=== PATIENT | male | born 1950 | race Caucasian/White ===

== ENCOUNTER 2019-07-02 07:20 | Day surgery (SDC) | payer MEDICARE, OTHER, SELFPAY ==
[2019-07-02 07:42] VITALS: BP 138/73; PULSE 73; RESP 14; TEMP 36.6; O2SAT 100; BMI 25.7
--- NOTE | 2019-07-02 07:58 | PCM.HP.STD ---
Problem List (1) Screening for intestinal cancer Status: Acute History of Present Illness Date of Admission: 07/02/19 The patient is a 68 year old M presents for screening colonoscopy today. Patient has never had a previous examination. Patient denies chest pain or shortness of breath. There is no up bright red blood per rectum or melena. No abdominal pain. Otherwise enjoys good health. Past Medical History Allergies codeine Allergy (Verified 07/02/19 07:41) Nausea shellfish derived Allergy (Verified 07/02/19 07:41) Nausea Home Medications: Ambulatory Orders Medication Instructions Recorded Aspirin E.C. [Ecotrin] 81 mg PO DAILY@0800 06/30/19 Glimepiride 2 mg PO DAILY 06/30/19 Lisinopril [Prinivil] 10 mg PO DAILY 06/30/19 Metformin HCl 1,000 mg PO BID 06/30/19 Metoprolol Tartrate [Lopressor 50 mg PO BID 06/30/19 (Beta Apollo)] Simvastatin [Zocor] 40 mg PO QHS 06/30/19 Smoking Status: Never smoker Tobacco Use: Non-smoker Review of Systems HEENT: Denies: Difficulty Swallowing Cardiovascular: Denies: Chest Pain Gastrointestinal: Denies: Abdominal Pain, Melena Endocrine: Denies: Change in Body Habitus VTE Information - Inpt Only VTE Present on Admission: No Patient Problems: Active and Suspected Problems Screening for intestinal cancer (Acute) - Physical Exam Vitals/I&O's: Vital Signs Temp Pulse Resp BP Pulse Ox 97.9 F 73 14 138/73 H 100 07/02/19 07:42 07/02/19 07:42 07/02/19 07:42 07/02/19 07:42 07/02/19 07:42 Weight: 154 lb 12.232 oz Body Mass Index (BMI) 25.7 General: Alert, Oriented x3, Cooperative, No apparent distress HEENT: Atraumatic Lungs: Clear to auscultation, Normal air movement Cardiovascular: Regular rate, Regular Rhythm Abdomen: Bowel Sounds Present, Soft, Non Tender Psych/Mental Status: Normal Affect Assessment/Plan All Active Problems Screening for intestinal cancer (Acute) I recommended the patient is screening colonoscopy with possible biopsy or polypectomy is indicated. The patient has had an opportunity to ask and have questions answered. Patient presents via our open access program today. We will proceed as noted. Alexandru Beltran M.D., F.A.C.S.
[2019-07-02 08:01] LABS: Bedside Glucose 110 mg/dL (70-110)
[2019-07-02] MEDS: Lactated Ringers 1,000 ML 100 ML IV (08:05)
[2019-07-02 08:51] VITALS: BP 138/73; BP 87/61; PULSE 88; RESP 18; TEMP 36.6; O2SAT 95
[2019-07-02 08:55] VITALS: BP 138/73; BP 98/52; PULSE 67; RESP 18; O2SAT 92
[2019-07-02 09:00] VITALS: BP 101/57; BP 138/73; PULSE 92; RESP 18; O2SAT 94
[2019-07-02 09:05] VITALS: BP 109/55; BP 138/73; PULSE 69; RESP 18; TEMP 36.4; O2SAT 95
[2019-07-02 09:40] VITALS: BP 138/73
--- NOTE | 2019-07-05 14:18 | OP.COLON_ITS ---
Patient Name: Armando Jeffery Procedure Date: 07/02/2019 8:31 AM Date of : 1950 Age: 68 Procedure: Colonoscopy Indications: Screening for colorectal malignant neoplasm Providers: Alexandru Beltran MD Referring MD: Gian Menjivar Medicines: See the Anesthesia note for documentation of the administered medications Patient Profile: Last Colonoscopy: none. The patient's first colonoscopy is today. Complications: No immediate complications. Procedure: Pre-Anesthesia Assessment: - Prior to the procedure, a History and Physical was performed, and patient medications and allergies were reviewed. The patient's tolerance of previous anesthesia was also reviewed. The risks and benefits of the procedure and the sedation options and risks were discussed with the patient. All questions were answered, and informed consent was obtained. Prior Anticoagulants: The patient has taken no previous anticoagulant or antiplatelet agents. ASA Grade Assessment: II - A patient with mild systemic disease. After reviewing the risks and benefits, the patient was deemed in satisfactory condition to undergo the procedure. After I obtained informed consent, the scope was passed under direct vision. Throughout the procedure, the patient's blood pressure, pulse, and oxygen saturations were monitored continuously. The Colonoscope was introduced through the anus and advanced to the cecum, identified by appendiceal orifice and ileocecal valve. The colonoscopy was somewhat difficult due to multiple diverticula in the colon. The patient tolerated the procedure well. The quality of the bowel preparation was good. Scope In: 8:37:56 AM Scope Withdrawal Time 0 hours 6 minutes 31 seconds Scope Out: 8:48:54 AM Total Procedure Duration Time 0 hours 10 minutes 58 seconds Findings: The digital rectal exam findings include non-thrombosed external hemorrhoids, non-thrombosed internal hemorrhoids and internal hemorrhoids that prolapse with straining, but spontaneously regress to the resting position (Grade II). Pertinent negatives include no palpable rectal lesions. Multiple diverticula were found in the entire colon. The exam was otherwise without abnormality. Impression: - Non-thrombosed external hemorrhoids, non-thrombosed internal hemorrhoids and internal hemorrhoids that prolapse with straining, but spontaneously regress to the resting position (Grade II) found on digital rectal exam. - Diverticulosis in the entire examined colon. - The examination was otherwise normal. - No specimens collected. Recommendation: - Discharge patient to home. - Resume previous diet. - Continue present medications. - Repeat colonoscopy in 10 years for screening purposes. Procedure Code(s): --- Professional --- 89729, Colonoscopy, flexible; diagnostic, including collection of specimen(s) by brushing or washing, when performed (separate procedure) Diagnosis Code(s): --- Professional --- Z12.11, Encounter for screening for malignant neoplasm of colon K64.1, Second degree hemorrhoids K64.4, Residual hemorrhoidal skin tags K57.30, Diverticulosis of large intestine without perforation or abscess without bleeding CPT copyright 2017 [employer]. All rights reserved. The codes documented in this report are preliminary and upon machine preservative filler review may be revised to meet current compliance requirements. Alexandru Beltran MD 07/02/2019 8:53:00 AM This report has been signed electronically. Number of Addenda: 0 Note Initiated On: 07/02/2019 8:31 AM
--- NOTE | 2019-07-05 14:18 | OP.CCLET_ITS ---
07/05/2019 Gian Menjivar Re : Colonoscopy procedure for Armando Jeffery Dear [place] This procedure was performed on Tuesday, July 02, 2019. My impressions and recommendations are as follows: Impressions : - Non-thrombosed external hemorrhoids, non-thrombosed internal hemorrhoids and internal hemorrhoids that prolapse with straining, but spontaneously regress to the resting position (Grade II) found on digital rectal exam. - Diverticulosis in the entire examined colon. - The examination was otherwise normal. - No specimens collected. Recommendations : - Discharge patient to home. - Resume previous diet. - Continue present medications. - Repeat colonoscopy in 10 years for screening purposes. My findings are described in the full procedure note, which is enclosed. If I can be of further assistance, please feel free to contact me at Doctor phone number(s): Work: . Sincerely, Alexandru Beltran MD 07/02/2019 8:53:00 AM This report has been signed electronically.
== END 2019-07-02 09:41 | disposition home or self-care (01) ==
LOC: EN 07:22 → AC 07:25 → ACINP 10:35
PROVIDERS: Visit Provider Surgery
PROC: 0DJD8ZZ Inspection of Lower Intestinal Tract, Via Natural or Artificial Opening Endoscopic (ICD-10-PCS; CPT 45378; principal; 2019-07-02 08:25)
DX: Z12.11 Encounter for screening for malignant neoplasm of colon (principal); K64.1 Second degree hemorrhoids; K64.4 Residual hemorrhoidal skin tags; K57.30 Diverticulosis of large intestine without perforation or abscess without bleeding; I10 Essential (primary) hypertension; Z79.84 Long term (current) use of oral hypoglycemic drugs; Z79.899 Other long term (current) drug therapy
CPT/HCPCS: G0121; 82962; J7120

== ENCOUNTER → 2023-11-07 | Outpatient (CLI) | payer MEDICARE, OTHER, SELFPAY ==
[2023-11-07 12:37] LABS: Absolute Lymphocyte Count 1.83 X10^3/uL (0.83-4.51); Absolute Neutrophil Count 4.1 X10^3/uL (2.0-7.7); Basophil# 0.05 X10^3/uL; Basophil% 0.7 % (0-1); Eosinophil# 0.27 X10^3/uL; Hematocrit 43.5 % (40-54); Hemoglobin 14.4 g/dL (13.0-16.5); Lymphocyte # 1.83 X10^3/ul (0.83-4.51); Lymphocyte % 27.3 % (19-41); Mean Corp Hgb Conc 33.1 g/dL (32-36); Mean Corpuscular Hgb 30.7 pg (27.0-32.0); Mean Corpuscular Volume 92.8 fL (80-94); Mean Platelet Vol. 9.8 fl (6.2-12.0); NRBC Flagged by Analyzer 0 % (0-5); Neutrophil # 4.13 X10^3/uL (2.7-7.7); Neutrophil % 61.7 % (47-70); Platelet Count 270 K/mm3 (150-450); RBC Distribution Width CV 13.8 % (11.6-14.6); RBC Distribution Width SD 46.9 fl (35.1-43.9); Red Blood Count 4.69 M/mm3 (4.6-6.2); White Blood Count 6.7 K/mm3 (4.4-11.0)
[2023-11-07 12:50] LABS: ALB/GLOB Ratio 1.3 RATIO (0.9-2.4); AST(SGOT) 24 U/L (15-37); Alanine Aminotransfer ALT/SGPT 24 U/L (16-61); Alkaline Phosphatase 44 U/L (45-117); Anion Gap 6 (5-15); BUN 19 mg/dL (7-18); BUN/Creat Ratio 13.1 RATIO (10-20); Calcium,Total 9.2 mg/dL (8.5-10.1); Chloride 107 mmol/L (98-107); Cholesterol 110 mg/dL (200); Creatinine, Serum 1.45 mg/dL (0.70-1.30); EST Glomerular Filtration Rate 50 mL/min (>60); Est Glom Filt Rate - Afr Amer 61 mL/min (>60); Globulin 3.1 g/dL (2.2-4.2); Glucose 92 mg/dL (74-106); High Density Lipoprotein 34 mg/dL; PSA,Total - Annual Screen 3.82 ng/mL (0.00-4.00); Potassium 5.2 mmol/L (3.5-5.1); Protein, Total 7.1 g/dL (6.4-8.2); Sodium Level 137 mmol/L (136-145); Triglycerides 99 mg/dL; Very Low Density Lipoprotein 20 mg/dL (5-40)
[2023-11-07 15:35] LABS: Vitamin B12 566 pg/mL (211-911)
== END | disposition home or self-care (01) ==
LOC: BFHLAB 09:47
PROVIDERS: PCP Nurse Practitioner Family; Referring Provider Nurse Practitioner Family; Visit Provider Nurse Practitioner Family
DX: I10 Essential (primary) hypertension (principal); E78.5 Hyperlipidemia, unspecified; Z12.5 Encounter for screening for malignant neoplasm of prostate; E53.8 Deficiency of other specified B group vitamins
CPT/HCPCS: 36415; 80053; 80061; 82607; 84153; 85025; G0103

== ENCOUNTER → 2025-05-02 | Outpatient (CLI) | payer MEDICARE, OTHER, SELFPAY ==
[2025-05-02 12:36] LABS: Hematocrit 42.4 % (40-54); Hemoglobin 14.4 g/dL (13.0-16.5); Immature Granulocytes Count 0.060 X10^3/uL (0.0-0.0); Mean Corp Hgb Conc 34.0 g/dL (32-36); Mean Corpuscular Volume 91.4 fL (80-94); Mean Platelet Vol. 9.6 fl (6.2-12.0); NRBC Flagged by Analyzer 0 % (0-5); Platelet Count 281 K/mm3 (150-450); RBC Distribution Width CV 13.7 % (11.6-14.6); RBC Distribution Width SD 46.3 fl (35.1-43.9); Red Blood Count 4.64 M/mm3 (4.6-6.2); White Blood Count 8.3 K/mm3 (4.4-11.0)
[2025-05-02 13:30] LABS: AST(SGOT) 25 U/L (<=37); Alanine Aminotransfer ALT/SGPT 16 U/L (<=46); Albumin, Serum 4.3 g/dL (3.4-4.8); Alkaline Phosphatase 48 U/L (40-129); Anion Gap 13 (5-15); BUN 19 mg/dL (4-19); BUN/Creat Ratio 13.6 RATIO (10-20); Calcium,Total 9.5 mg/dL (7.6-11.0); Carbon Dioxide 23.3 mmol/L (21.0-32.0); Chloride 95 mmol/L (98-108); Cholesterol 104 mg/dL (<=200); Globulin 2.6 g/dL (2.2-4.2); Glucose 83 mg/dL (70-99); Low Density Lipoprotein Calc. 56 mg/dL; Potassium 4.7 mmol/L (3.3-5.1); Triglycerides 69 mg/dL; Very Low Density Lipoprotein 14 mg/dL (5-40); Vitamin B12 723 pg/mL (180-914); cholesterol:hdl ratio screen 3.13
[2025-05-05 13:07] LABS: PSA,Total - Annual Screen 3.41 ng/mL (0.02-4.00)
== END | disposition home or self-care (01) ==
LOC: BFHLAB 09:25
PROVIDERS: PCP Nurse Practitioner Family; Visit Provider Nurse Practitioner Family
DX: Z12.5 Encounter for screening for malignant neoplasm of prostate (principal); E11.9 Type 2 diabetes mellitus without complications; I10 Essential (primary) hypertension; E53.8 Deficiency of other specified B group vitamins; E78.5 Hyperlipidemia, unspecified
CPT/HCPCS: 36415; 80053; 80061; 82607; 83036; 84153; 85025; G0103